=== PATIENT | female | born 1990 | race Caucasian/White ===

== ENCOUNTER 2019-11-18 00:07 | Emergency (ER) | payer OTHER ==
[2019-11-18 00:29] VITALS: BMI 25.0
--- NOTE | 2019-11-18 01:30 | PDOC ---
History of Present Illness - General Chief Complaint: Vaginal Bleeding Stated Complaint: HEAVY BLEEDING Time Seen by Provider: 11/18/19 00:50 History Source: Patient Exam Limitations: Language Barrier ([employer] #[id number]) - History of Present Illness Travel History: No Initial Comments: 11/18/19 01:38 HISTORY OF PRESENT ILLNESS: 29-year-old woman with past medical history of polycystic ovarian syndrome presents emergency department for evaluation of hea vy vaginal bleeding worsening over the past 5 days. Patient reports the bleeding has been intermittent over the 5 days with frequent blood clots. Patient states over the past 2 days she has used 30 pads which she states have been saturated sometimes requiring changing after 10 minutes due to saturation. Patient reports she is not sexually active and her last menstrual period was "sometime in September." Patient also endorses a cramping pain throughout her pelvis radiating to her lower back. Patient is unable to quantify pain. No recent travel or sick contacts. PAST MEDICAL HISTORY: PCOS SURGICAL HISTORY: Denies ALLERGIES: No known drug allergies REVIEW OF SYSTEMS General/Constitutional: Denies fever or chills. Denies weakness, weight change. HEENT: Denies change in vision. Denies ear pain or discharge. Denies sore throat. Cardiovascular: Denies chest pain or shortness of breath. Respiratory: Denies cough, wheezing, or hemoptysis. Gastrointestinal: Denies nausea, vomiting, diarrhea or constipation. Denies rectal bleeding. Genitourinary: See HPI Musculoskeletal: Denies joint or muscle swelling or pain. Denies neck or back pain. Skin and breasts: Denies rash or easy bruising. Neurologic: Denies headache, vertigo, loss of consciousness, or loss of sensation. Psychiatric: Denies depression or anxiety. Endocrine: Denies increased thirst. Denies abnormal weight change. Hematologic/Lymphatic: Denies anemia, easy bleeding, or history of blood clots. Allergic/Immunologic: Denies hives or skin allergy. Denies latex allergy. PHYSICAL EXAM General Appearance: Well-appearing, appropriately dressed. No apparent distress, no intoxication. HEENT: EOMI, PERRLA, normal ENT inspection, normal voice, TMs normal, pharynx normal. No conjunctival pallor. No photophobia, scleral icterus. Respiratory/Chest: Lungs CTAB. No shortness of breath, chest tenderness, respiratory distress, accessory muscle use. No crackles, rales, rhonchi, stridor, wheezing, dullness Cardiovascular: RRR. S1, S2. No JVD, murmur, bradycardia, tachycardia. Vascular Pulses: Dorsalis-Pedis (R): 2+, Dorsalis-Pedis (L): 2+ Gastrointestinal/Abdominal: Normal bowel sounds. Abdomen soft, non-distended. No tenderness or rebound tenderness. No organomegaly, pulsatile mass, guarding, hernia, hepatomegaly, splenomegaly. Lymphatic: No adenopathy, tenderness. Integumentary: Appropriate color, dry, warm. No cyanosis, erythema, jaundice or rash Past History - Medical History Allergies/Adverse Reactions: Allergies Allergy/AdvReac Type Severity Reaction Status Date / Time No Known Allergies Allergy Verified 11/18/19 00:27 Home Medications: Ambulatory Orders NK [No Known Home Medication] 11/18/19 - Psycho-Social/Smoking History Smoking History: Never smoked Have you smoked in the past 12 months: No Information on smoking cessation initiated: No - Substance Abuse Hx (Audit-C & DAST Scrn) How often the patient has a drink containing alcohol: Never Score: In Men: 4 or > Positive; In Women: 3 or > Positive: 0 Screen Result (Pos requires Nsg. Audit-10AR): Negative In the last yr the pt used illegal drug/Rx for NonMed reason: No Score: Yes response is considered Positive: 0 Screen Result (Positive result requires Nsg. DAST-10): Negative *Physical Exam - Vital Signs Last Vital Signs Temp Pulse Resp BP Pulse Ox 99.3 F 70 20 126/63 98 11/18/19 00:27 11/18/19 00:27 11/18/19 00:27 11/18/19 00:27 11/18/19 00:27 - Physical Exam Comments:: 11/18/19 02:20 MIKE Flynn present as tree marker Female Pelvic Exam: positive: normal external exam, cervical os closed, normal adnexa, vaginal bleeding. negative: CMT, discharge ED Treatment Course - LABORATORY CBC & Chemistry Diagram: 11/18/19 02:20 11/18/19 02:20 Medical Decision Making - Medical Decision Making 11/18/19 01:40 A/P: 29-year-old woman with heavy vaginal bleeding over the past 5 days Vaginal exam performed with RN Flynn at bedside to tree marker. No cervical motion tenderness. Cervical loss is closed. No adnexal tenderness present. Scant blood noted in the vaginal vault. CBC, CMP, coagulation profile, type and screen, beta hCG Urinalysis, urine culture Transvaginal ultrasound Reassess 11/18/19 01:49 Received call from ultrasound. Patient is refusing transvaginal at this time. Test changed to transabdominal. 11/18/19 02:19 Patient signed out to MD Sidhu for continued evaluation. Discharge - Discharge Information Problems reviewed: Yes Clinical Impression/Diagnosis: Vaginal bleeding Condition: Stable Disposition: HOME - Follow up/Referral Referrals: La Jc MD [Staff Physician] - Andrew Escobar MD [Staff Physician] - Jack Carmona MD [Staff Physician] - - Patient Discharge Instructions Patient Printed Discharge Instructions: DI for Vaginal Bleeding Additional Instructions: You were seen in the Emergency Department for evaluation of vaginal bleeding. Your labs and ultrasound were unremarkable. Review the handouts provided at discharge. You were also given referrals for OBGYN. You should follow up with them within a week. For pain you may take Tylenol 650mg every 6 hours and Ibuprofen 600mg every 6-8 hours, alternating them each time. Return to the Emergency Department if you develop fevers/chills, chest pain, trouble breathing, dizziness, abdominal pain, pain with urination, blood in your urine, blood in your stool. Usted fue visto en el Departamento de Emergencias para la evaluacin del sangrado vaginal. Alisson laboratorios y ultrasonido no fueron notables. Revise los folletos proporcionados al allison. Tamfauzia le dieron referencias para OBGYN. Debe hacer un seguimiento con ellos dentro de anish semana. Para el dolor, puede ivone 650 mg de Tylenol cada 6 horas e 600 mg de ibuprofeno cada 6 a 8 horas, alternando cada vez. Regrese al departamento de emergencias si presenta fiebre / escalofros, dolor en el pecho, dificultad para respirar, mareos, dolor abdominal, dolor al orinar, maame en la orina, maame en las heces. Print Language: CAMBODIAN - Post Discharge Activity
[2019-11-18 02:51] LABS: BASO % 0.5 % (0-2.0); EOS % 1.2 % (0-4.5); HEMATOCRIT 31.6 % (32.4-45.2); HEMOGLOBIN 10.6 GM/dL (10.7-15.3); LYMPH % 33.4 % (8-40); MCH 29.1 pg (25.7-33.7); MCHC 33.6 g/dl (32.0-36.0); MEAN CELL VOLUME 86.5 fl (80-96); MEAN PLT VOLUME 8.3 fl (7.5-11.1); MONO % 6.1 % (3.8-10.2); NEUT % 58.8 % (42.8-82.8); PLATELET COUNT 260 K/MM3 (134-434); RBC 3.66 M/mm3 (3.60-5.2); RDW 12.7 % (11.6-15.6); WHITE BLOOD COUNT 8.5 K/mm3 (4.0-10.0)
--- NOTE | 2019-11-18 03:00 | PDOC ---
*Physical Exam - Vital Signs Last Vital Signs Temp Pulse Resp BP Pulse Ox 99.3 F 70 20 126/63 98 11/18/19 00:27 11/18/19 00:27 11/18/19 00:27 11/18/19 00:27 11/18/19 00:27 ED Treatment Course - LABORATORY CBC & Chemistry Diagram: 11/18/19 02:20 11/18/19 02:20 Medical Decision Making - Medical Decision Making Pt received as sign out Concern for vaginal bleeding US w/ thickened endometrium w/o fibroids or cysts identified Pt pending lab results At this time pt appears non-toxic and is ambulating with stable gait 11/18/19 02:55 Anemia noted, no indication for transfusion at this time No leukocytosis Lytes overall unremarkable No BART LFTs unremarkable UA w/o evidence of UTI Pt non-toxic appearing at this time Plan for D/C w/ OBGYN f/u Discharge instructions and return precautions given Pt in agreement and verbalized understanding Dispo: home 11/18/19 06:06 Discharge - Discharge Information Problems reviewed: Yes Clinical Impression/Diagnosis: Vaginal bleeding Condition: Stable - Admission No - Follow up/Referral Referrals: Andrew Escobar MD [Staff Physician] - Jack Carmona MD [Staff Physician] - La Jc MD [Staff Physician] - - Patient Discharge Instructions Patient Printed Discharge Instructions: DI for Vaginal Bleeding Additional Instructions: You were seen in the Emergency Department for evaluation of vaginal bleeding. Your labs and ultrasound were unremarkable. Review the handouts provided at discharge. You were also given referrals for OBGYN. You should follow up with them within a week. For pain you may take Tylenol 650mg every 6 hours and Ibuprofen 600mg every 6-8 hours, alternating them each time. Return to the Emergency Department if you develop fevers/chills, chest pain, trouble breathing, dizziness, abdominal pain, pain with urination, blood in your urine, blood in your stool. Usted fue visto en el Departamento de Emergencias para la evaluacin del sangrado vaginal. Alisson laboratorios y ultrasonido no fueron notables. Revise los folletos proporcionados al allison. Tambin le dieron referencias para OBGYN. Debe hacer un seguimiento con ellos dentro de anish semana. Para el dolor, puede ivone 650 mg de Tylenol cada 6 horas e 600 mg de ibuprofeno cada 6 a 8 horas, alternando cada vez. Regrese al departamento de emergencias si presenta fiebre / escalofros, dolor e n el pecho, dificultad para respirar, mareos, dolor abdominal, dolor al orinar, maame en la orina, maame en las heces. Print Language: SAMI - Post Discharge Activity
[2019-11-18 03:01] LABS: EPI CELLS 3 /uL (0-25.1); HYALINE CASTS 0 /uL (0-3.1); URINE APPEARANCE CLOUDY; URINE BACTERIA 3 /uL (0-1359); URINE BILIRUBIN NEGATIVE (NEGATIVE); URINE COLOR RED; URINE GLUCOSE (UA) NEGATIVE (NEGATIVE); URINE KETONE NEGATIVE (NEGATIVE); URINE LEUK ESTERASE TRACE (NEGATIVE); URINE NITRITE NEGATIVE (NEGATIVE); URINE PROTEIN 2+ (NEGATIVE); URINE RBC 23745 /uL (0-23.9); URINE UROBILINOGEN 0.2 mg/dL (0.2-1.0); URINE WBC 28 /uL (0-25.8)
[2019-11-18 03:01] LABS: INR 1.23 (0.83-1.09); PROTHROMBIN TIME (PATIENT) 14.6 SEC (9.7-13.0)
[2019-11-18 03:18] LABS: ALBUMIN 3.7 g/dl (3.4-5.0); BILIRUBIN,TOTAL 0.3 mg/dL (0.2-1); BLOOD UREA NITROGEN 12.6 mg/dL (7-18); CALCIUM 8.6 mg/dL (8.5-10.1); CREATININE 0.8 mg/dL (0.55-1.3); POTASSIUM 4.2 mmol/L (3.5-5.1); TOT PROT 7.2 g/dl (6.4-8.2)
[2019-11-18 03:53] VITALS: BP 103/60; PULSE 78; TEMP 97.7
== END 2019-11-18 03:54 | disposition home or self-care (01) ==
LOC: JER 00:07
DX: N93.9 Abnormal uterine and vaginal bleeding, unspecified (principal)
CPT/HCPCS: 36415; 76856-TC; 80053; 81003; 84702; 85025; 85610; 86850; 86900; 86901; 87086; 99284-25

== ENCOUNTER 2022-08-05 19:34 | Emergency (ER) | payer OTHER ==
[2022-08-05 19:47] VITALS: BP 129/74; PULSE 86; RESP 18; TEMP 98.1; BMI 32.5
[2022-08-05 20:03] LABS: HCG,QUALITATIVE URINE Negative
[2022-08-05 20:25] LABS: HEMATOCRIT 32.1 % (32.4-45.2); HEMOGLOBIN 10.9 G/dL (10.7-15.3); MCH 28.6 pg (25.7-33.7); MCHC 33.9 g/dl (32.0-36.0); MEAN CELL VOLUME 84.4 fl (80-96); MEAN PLT VOLUME 7.8 fl (7.5-11.1); PLATELET COUNT 284.7 10^3/uL (134-434); RDW 14.5 % (11.6-15.6); WHITE BLOOD COUNT 8.5 10^3/uL (4.0-10.8)
[2022-08-05 20:36] LABS: ALBUMIN 3.7 g/dl (3.4-5.0); BILIRUBIN,TOTAL 0.2 mg/dl (0.2-1); CALCIUM 8.8 mg/dl (8.5-10); CREATININE 0.7 mg/dl (0.55-1.3); TOT PROT 7.4 g/dl (6.4-8.2)
[2022-08-05 20:47] LABS: EPITHELIAL CELLS FEW /hpf; URIC ACID CRYSTALS FEW /hpf (NONE SEEN)
[2022-08-05 20:53] LABS: PLATELET ESTIMATE ADEQUATE
== END 2022-08-05 20:42 | disposition home or self-care (01) ==
LOC: FER 19:34
DX: N93.9 Abnormal uterine and vaginal bleeding, unspecified (principal)
CPT/HCPCS: 36415; 80053; 81003; 81015; 81025; 84703; 85027; 87086; 99283-25